=== PATIENT | male | born 1970 | race Caucasian/White ===

== ENCOUNTER 2022-06-17 13:01 | Emergency (ER) | payer SELFPAY ==
--- NOTE | ~2022-06-17 | US_ITS ---
EXAMINATION: US scrotum doppler DATE: 06/17/2022 14:32 INDICATION: Right scrotal abscess with drainage. TECHNIQUE: Grayscale and Doppler ultrasound images of the testes were obtained. COMPARISON: None. FINDINGS: The right testis measures 5.5 x 4.1 x 2.4 cm. The left testis measures 5.8 x 3.1 x 2.9 cm. There is a scrotal left on the left. There is normal vascular flow to both testes. The right epididym is is normal with normal vascular flow. The left epididymis is normal with normal vascular flow. Ther e is a small left hydrocele. In the scrotum on the right, there is a 2.8 x 1.3 x 2.0 cm hypoechoic ma ss with peripheral vascularity. The center of the mass is the most hypoechoic without vascularity and measures 2.3 x 1.0 x 0.6 cm. IMPRESSION: 1. Mass in right scrotum, consistent with phlegmon versus abscess. It is not clear if the material in the center of the mass is drainable. Reviewed, dictated and finalized at location A. IMPRESSION: 1. Mass in right scrotum, consistent with phlegmon versus abscess. It is not cl ear if the material in the center of the mass is drainable.
[2022-06-17 13:16] VITALS: BP 152/88; PULSE 99; RESP 20; TEMP 36.8; O2SAT 97
[2022-06-17 13:52] LABS: Basophils Absolute Auto 0.03 K/mm3 (0.00-0.10); Basophils Percent Auto 0.3 % (0.0-1.0); Eosinophils Absolute Auto 0.13 K/mm3 (0.02-0.50); Eosinophils Percent Auto 1.5 % (1.0-6.0); Hematocrit 48.3 % (40.0-54.0); Hemoglobin 16.8 g/dL (14.0-18.0); Immature Granulocyte Absolute 0.03 K/mm3 (0.00-0.00); Immature Granulocyte Percent A 0.3 % (0.0-0.0); Lymphocytes Absolute Auto 2.06 K/mm3 (1.10-4.50); Lymphocytes Percent Auto 23.3 % (18.0-42.0); Mean Corpuscular HGB Conc 34.8 g/dL (32.0-36.0); Mean Corpuscular Hemoglobin 32.5 pg (27.0-31.0); Mean Corpuscular Volume 93.4 fL (78.0-102.0); Mean Platelet Volume 8.7 fl (8.7-11.0); Monocytes Absolute Auto 0.88 K/mm3 (0.10-0.90); Neutrophils Absolute Auto 5.7 K/mm3 (1.7-7.2); Neutrophils Percent Auto 64.6 % (50.0-70.0); Platelet Count Result 333 K/mm3 (150-420); Red Blood Count 5.17 M/mm3 (4.70-6.10); Red Cell Distribution Width 13.1 % (11.6-14.4); White Blood Count 8.8 K/mm3 (4.8-10.8)
--- NOTE | 2022-06-17 13:59 | ED.GENADULT ---
HPI - General Adult General Chief complaint: Urogenital-Male Stated complaint: TESTICLE ISSUE Time Seen by Provider: 06/17/22 13:25 History of Present Illness HPI narrative: Toby is a 51M with a PMH of tobacco abuse that presented to the ED with a rash on his right inner thigh and scrotum. About a month ago he started to have chills and later an erythematous rash developed and turned to a boil several days ago. The boil popped and had lots of purulent drainage yesterday. Related Data Home Medications Medication Instructions Recorded Confirmed No Home Medications 06/17/22 06/17/22 Allergies Allergy/AdvReac Type Severity Reaction Status Date / Time No Known Allergies Allergy Verified 06/17/22 19:39 [facility] Past Medical History Medical History (Updated 06/18/22 @ 08:12 by Barry Eng DO) Tobacco dependence Surgical History Surgical History (Updated 06/17/22 @ 23:17 by Taylor Maddox PA-C) No history of previous surgery Family History Family History (Updated 06/17/22 @ 23:18 by Taylor Maddox PA-C) Other Family history non-contributory Social History Social History (Updated 06/17/22 @ 23:19 by Taylor Maddox PA-C) Social History: Surrogate medical decision maker: Courtney Hughes, sister. Code status: Full code. Smoking packs per day: 1.5 Smoking cigarettes per day: 30.0 Years smoked: 34 Smoking pack-years: 51.00 Smoking status: Current every day smoker Tobacco type: cigarettes Second hand tobacco smoke exposure: No Alcohol intake: current Drinks per week: 12 Alcohol use details: Twelve pack of beer a week. Substance use: never Substance use type: does not use Additional living arrangements comments: The patient lives in his own home in [place]. Additional occupation/education comments: [employer]. Spiritual care concerns: No Course Course Emergency Course: Declined pain meds EXAMINATION: US scrotum doppler DATE: 06/17/2022 14:32 INDICATION: Right scrotal abscess with drainage. TECHNIQUE: Grayscale and Doppler ultrasound images of the testes were obtained. COMPARISON: None. FINDINGS: The right testis measures 5.5 x 4.1 x 2.4 cm. The left testis measures 5.8 x 3.1 x 2.9 cm. There is a scrotal left on the left. There is normal vascular flow to both testes. The right epididymis is normal with normal vascular flow. The left epididymis is normal with normal vascular flow. There is a small left hydrocele. In the scrotum on the right, there is a 2.8 x 1.3 x 2.0 cm hypoechoic mass with peripheral vascularity. The center of the mass is the most hypoechoic without vascularity and measures 2.3 x 1.0 x 0.6 cm. IMPRESSION: 1. Mass in right scrotum, consistent with phlegmon versus abscess. It is not clear if the material in the center of the mass is drainable. I called [facility] for a consult and Yarely, the [employer] called back at [phone] and recommended transfer. I spoke with Taylor that accepted the transfer for Dr. Swan. He was transferred to [facility] for a Urology consult. Vital Signs Vital signs: Vital Signs Temperature 98.2 F 06/17/22 13:16 Pulse Rate 99 06/17/22 13:16 Respiratory Rate 20 06/17/22 13:16 Blood Pressure 152/88 H 06/17/22 13:16 Pulse Oximetry 97 06/17/22 13:16 Oxygen Delivery Room Air 06/17/22 13:16 Temperature 98.2 F 06/17/22 13:16 Pulse Rate 86 06/17/22 17:15 Respiratory Rate 20 06/17/22 17:15 Blood Pressure 141/91 H 06/17/22 17:15 Pulse Oximetry 96 06/17/22 17:15 Oxygen Delivery Room Air 06/17/22 17:15 Medical Decision Making Vital Signs Vital Signs: Vital Signs Temperature 98.2 F 06/17/22 13:16 Pulse Rate 99 06/17/22 13:16 Respiratory Rate 20 06/17/22 13:16 Blood Pressure 152/88 H 06/17/22 13:16 Pulse Oximetry 97 06/17/22 13:16 Oxygen Delivery Room Air 06/17/22 13:16 Temperature 98.2 F 06/17/22 13:16 Pulse Rate 86 06/17/22 17:15 Respira
[2022-06-17 14:08] LABS: Alanine Aminotransferase 24 U/L (16-63); Albumin Level 3.6 g/dL (3.4-5.0); Alkaline Phosphatase 101 U/L (46-116); Anion Gap 9 mmol/L (8-16); Aspartate Amino Transferase 20 U/L (15-37); Bilirubin,Total 0.6 mg/dL (0.00-1.00); Blood Urea Nitrogen 6 mg/dL (7-18); Calcium 9.1 mg/dL (8.5-10.1); Carbon Dioxide 28 mmol/L (21-32); Chloride 100 mmol/L (98-108); Estimated CRCL calculation 78 ml/min; Estimated Glomerular Filt Rate > 60; Glucose 102 mg/dL (70-99); Osmolality Calculated 281 mOsm/kg (285-295); Potassium 3.8 mmol/L (3.5-5.1); Sodium 137 mmol/L (136-145); Total Protein 7.3 g/dL (6.4-8.2)
[2022-06-17 14:15] VITALS: BP 145/99; PULSE 89; RESP 20; O2SAT 96
[2022-06-17 15:15] VITALS: BP 149/96; PULSE 97; RESP 20; O2SAT 96
[2022-06-17] MEDS: CLINDAMYCIN 600 MG/D5W 50 ML 600 MG/50 ML PIGGYBACK 100 MG IVPB (16:13)
[2022-06-17 16:15] VITALS: BP 140/88; PULSE 90; RESP 20; O2SAT 95
[2022-06-17 17:15] VITALS: BP 141/91; PULSE 86; RESP 20; O2SAT 96
--- NOTE | 2022-06-17 17:28 | PC.NURSE ---
1715 ATTEMPTED TO CALL REPORT NURSE WAS BUSY AND COULD NOT TAKE REPORT
== END 2022-06-17 18:30 | disposition short-term general hospital (02) ==
PROVIDERS: Emergency Provider Family Medicine
DX: N49.2 Inflammatory disorders of scrotum (principal)
CPT/HCPCS: 36415; 76870; 80053; 85025; 93976; 96365; 99285

== ENCOUNTER 2022-06-17 19:00 | Inpatient (IN) | payer BC, SELFPAY ==
[2022-06-17 19:05] VITALS: BP 144/79; PULSE 70; RESP 14; TEMP 36.6; O2SAT 98; BMI 26.6
--- NOTE | 2022-06-17 19:35 | PC.NURSE ---
This patient, Toby Chou, was admitted to [facility] Room 326-01 on 06/17/22 @ 1900. Patient/family oriented to hospital policies and general routines including ID bracelet, bed and alarms, visiting hours, pain management, procedures, bathroom and other care routines, personal items, smoking policy, room service/diet, and visiting hours. Information on how to activate the Rapid Response Team has been discussed. Patient/Family are encouraged to report perceived risks to care and to ask questions if they do not understand what they are told or what they should do.
[2022-06-17 19:42] VITALS: BMI 26.4
--- NOTE | 2022-06-17 22:00 | PM.IMHP ---
H&P: HPI History of Present Illness Date/Time: 06/17/22 22:00 Chief Complaint: Scrotal abscess. Narrative: This is a very pleasant 51-year-old male smoker without significant medical history who is being directly admitted to the medical floor from the [facility] emergency department for further treatment and evaluation after he was found to have evidence of a scrotal abscess. About a month ago he noticed a small bump at the base of the right scrotum near the inguinal crease followed by the development of a boil a couple of weeks are after. Over the last week or so the area has become progressively more tender, swollen, and he has noticed redness around the scrotum and on to his upper thigh. He has been taking Tylenol for almost constant throbbing and aching pain as well as subjective fever and chills which started over the past week. 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 Yesterday the boil popped on its own and drained a fairly large amount of purulence admixed with what he believes to be old blood. Due to continued pain and fevers he went to the ER today where a scrotal ultrasound showed a mass in the right scrotum consistent with leg min verses abscess. He was given a dose of IV clindamycin and transfer was initiated to [place] for consultation with Urology. At the time my evaluation he is resting comfortably and he has no specific complaints. He had a similar boil many years ago in the same area. He has no history of MRSA to his knowledge. Review of Systems Review of Systems: Twelve systems were reviewed. He has had subjective fever, chills, and sweats. No cold or flu symptoms. No chest pain or shortness of breath. No nausea or vomiting. Except as documented, all other systems were reviewed and are negative. [facility] Past Medical History Medical History (Updated 06/17/22 @ 23:23 by Taylor Maddox PA-C) Tobacco dependence Surgical History Surgical History (Updated 06/17/22 @ 23:17 by Taylor Maddox PA-C) No history of previous surgery Family History Family History (Updated 06/17/22 @ 23:18 by Taylor Maddox PA-C) Other Family history non-contributory Social History Social History (Updated 06/17/22 @ 23:19 by HAYDEE Hughes Social History: Surrogate medical decision maker: Courtney Hughes, sister. Code status: Full code. Smoking packs per day: 1.5 Smoking cigarettes per day: 30.0 Years smoked: 34 Smoking pack-years: 51.00 Smoking status: Current every day smoker Tobacco type: cigarettes Second hand tobacco smoke exposure: No Alcohol intake: current Drinks per week: 12 Alcohol use details: Twelve pack of beer a week. Substance use: never Substance use type: does not use Additional living arrangements comments: The patient lives in his own home in [place]. Additional occupation/education comments: [employer]. Spiritual care concerns: No Meds Home Medications and Allergies Home Medications Medication Instructions Recorded Confirmed Type No Home Medications 06/17/22 06/17/22 History Allergies Allergy/AdvReac Type Severity Reaction Status Date / Time No Known Allergies Allergy Verified 06/17/22 19:39 Vital Signs Vital Signs - 24 hr 06/17/22 20:00 06/17/22 19:05 Temperature 97.8 F Pulse Rate 70 Respiratory Rate 14 Blood Pressure 144/79 H Pulse Oximetry 98 Oxygen Delivery Room Air Exam Narrative: General: Well-developed, nontoxic-appearing male in the semi-Melendez position in bed. Weight: 70 kilograms. BMI: 26.5. HEENT: PERRL, EOMI. Sclera anicteric. Conjunctiva mildly injected. Moist mucous membranes. Neck: Supple. Respiratory: Lungs are clear to auscultation bilaterally. Cardiovascular: Regular rate and rhythm with S1-S2. Gastrointestinal: Abdomen is soft, nontender, and nondistended with positive bowel sounds. No organomegaly. Genitourinary:
[2022-06-18] VITALS (14 sets, daily range): BP systolic 109–144; BP diastolic 71–95; PULSE 62–88; RESP 12–18; TEMP 36.2–37.8; O2SAT 97–100
[2022-06-18] MEDS: NICOTINE (*PBKC) 4 MG GUM PO ×3 (00:45→20:58)
[2022-06-18] MEDS: CLINDAMYCIN 600 MG/D5W 50 ML 600 MG/50 ML PIGGYBACK 100 MG IVPB ×4 (00:45→21:09)
[2022-06-18 06:00] LABS: Hematocrit 47.9 % (42.0-52.0); Mean Corpuscular HGB Conc 33.4 g/dl (32-36); Mean Corpuscular Hemoglobin 32.1 pg (26-34); Mean Platelet Volume 8.8 fl (7.4-10.4); Platelet Count Result 325 k/mm3 (150-375); Red Blood Count 4.99 M/mm3 (4.6-6.20); Red Cell Distribution Width 13.2 % (11.5-14.5)
[2022-06-18 06:27] LABS: Anion Gap 8 mmol/L (8-16); Blood Urea Nitrogen 11 mg/dL (9-20); CRP 2.5 mg/dL (<1.0); Calcium 8.9 mg/dL (8.4-10.2); Carbon Dioxide 29 mmol/L (22-30); Chloride 100 mmol/L (98-107); Estimated CRCL calculation 80 ml/min; Estimated Glomerular Filt Rate > 60; Glucose 117 mg/dL (65-110); Magnesium 2.3 mg/dL (1.6-2.3); Potassium 4.1 mmol/L (3.4-5.0); Sodium 137 mmol/L (137-145)
--- NOTE | 2022-06-18 09:08 | WPDURCON ---
Assessment and Plan Assessment and plan (1) Abscess of scrotum: Code(s): N49.2 - Inflammatory disorders of scrotum Status: Acute Plan Proceed with I and D of scrotal abscess in the operating this afternoon Urology Consult Note HPI Date Seen: 06/18/22 Requesting Physician: Brent Swan MD Primary Care Provider: UNKNOWN,DOCTOR Consult Narrative Reason for consult: Scrotal abscess Narrative: Toby Chou is a 51 year old male who developed some right scrotal swelling for the last past month. Patient was having a lot of discomfort in then noticed significant amount of drainage from his right hemiscrotum. [facility] here to [place]. He feels better today. Scrotal ultrasound revealed a 2 cm possible scrotal abscess. Patient has no fever or white count at this time. Review of Systems Review of Systems: All systems reviewed & are unremarkable except as noted in HPI and below PMFSH Past Medical History Medical History Tobacco dependence Surgical History Surgical History No history of previous surgery Family History Family History Other Family history non-contributory Social History Social History Social History: Surrogate medical decision maker: Courtney Hughes, sister. Code status: Full code. Smoking packs per day: 1.5 Smoking cigarettes per day: 30.0 Years smoked: 34 Smoking pack-years: 51.00 Smoking status: Current every day smoker Tobacco type: cigarettes Second hand tobacco smoke exposure: No Alcohol intake: current Drinks per week: 12 Alcohol use details: Twelve pack of beer a week. Substance use: never Substance use type: does not use Additional living arrangements comments: The patient lives in his own home in [place]. Additional occupation/education comments: [employer]. Spiritual care concerns: No Meds Home Medications and Allergies Home Medications Medication Instructions Recorded Confirmed Type No Home Medications 06/17/22 06/17/22 History Allergies Allergy/AdvReac Type Severity Reaction Status Date / Time No Known Allergies Allergy Verified 06/17/22 19:39 Vital Signs Vital Signs - 24 hr 06/17/22 20:00 06/17/22 19:05 06/18/22 04:44 Temperature 36.6 C 36.6 C Pulse Rate 70 88 Respiratory Rate 14 16 Blood Pressure 144/79 H 133/76 Pulse Oximetry 98 98 Oxygen Delivery Room Air Exam Const: General: cooperative and comfortable HENMT: Head: normal to inspection Resp: Effort & Inspection: normal respiratory effort Cardio: Rate: regular rate Rhythm: regular rhythm : Penis: Yes normal penis Scrotum: other (Area of fluctuance right hemiscrotum) Results Labs CBC & Chem 7: 06/18/22 05:39 06/18/22 05:39 Labs: Short CBC 06/18/22 Range/Units 05:39 WBC 7.0 (4.5-10.0) K/mm3 Hgb 16.0 (14.0-18.0) g/dL Hct 47.9 (42.0-52.0) % Plt Count 325 (150-375) k/mm3 [facility] 06/18/22 05:39 Sodium 137 Potassium 4.1 Chloride 100 Carbon Dioxide 29 BUN 11 Creatinine 0.80 Glucose 117 H Calcium 8.9
--- NOTE | 2022-06-18 09:11 | WPDHPUPDATE1 ---
History and Physical Update Update Date/Time: 06/18/22 09:11 History and Physical has been reviewed, including an updated exam of the patient. There are NO changes in the patient's condition. Risks, benefits, and alternatives have been discussed and questions answered. Patient agrees to proceed with procedure. Proceed with I and D of scrotal abscess
[2022-06-18] MEDS: NICOTINE (*PBKC) 21 MG PATCH 1 PATCH TRANSDERM (09:31)
--- NOTE | 2022-06-18 10:55 | WPDANESEPPF ---
Anes - Initial Pre Proc Eval Procedure: Operation Date: 06/18/22 14:45 Proposed Procedures p Incision and Drainage Scrotal Abscess - Amrit Covington MD Date/Time: 06/18/22 10:55 Surgeon: Brent Swan MD Pre Op Diagnosis: Right scrotal Abscess Patient Data Age: 51 Gender: M Height: 1.63 m Weight: 70 kg Last Vital Signs Temp 36.6 C 06/18/22 04:44 Pulse 88 06/18/22 04:44 Resp 16 06/18/22 04:44 BP 133/76 06/18/22 04:44 Pulse Ox 98 06/18/22 04:44 O2 Del Method Room Air 06/17/22 20:00 Allergies Allergy/AdvReac Type Severity Reaction Status Date / Time No Known Allergies Allergy Verified 06/17/22 19:39 Home Medications Medication Instructions Recorded Confirmed Type No Home Medications 06/17/22 06/17/22 History Laboratory Tests 06/18/22 06/18/22 05:39 05:39 WBC 7.0 K/mm3 K/mm3 (4.5-10.0) RBC 4.99 M/mm3 M/mm3 (4.6-6.20) Hgb 16.0 g/dL g/dL (14.0-18.0) Hct 47.9 % % (42.0-52.0) MCV 96.0 fl fl (80-100) MCH 32.1 pg pg (26-34) MCHC 33.4 g/dl g/dl (32-36) RDW 13.2 % % (11.5-14.5) Plt Count 325 k/mm3 k/mm3 (150-375) MPV 8.8 fl fl (7.4-10.4) Sodium 137 mmol/L mmol/L (137-145) Potassium 4.1 mmol/L mmol/L (3.4-5.0) Chloride 100 mmol/L mmol/L (98-107) Carbon Dioxide 29 mmol/L mmol/L (22-30) Anion Gap 8 mmol/L mmol/L (8-16) BUN 11 mg/dL mg/dL (9-20) Creatinine 0.80 mg/dL mg/dL (0.7-1.3) Estim Creat Clear Calc 80 ml/min ml/min Estimated GFR > 60 (59 - ) Glucose 117 mg/dL H mg/dL (65-110) Calcium 8.9 mg/dL mg/dL (8.4-10.2) Magnesium 2.3 mg/dL mg/dL (1.6-2.3) C-Reactive Protein 2.5 mg/dL H mg/dL (<1.0) Patient hx anesthesia problems: none Family hx anesthesia problems: none Results Review: All pre-operative results and documents have been reviewed as part of the pre-operative evaluation. [facility] Past Medical History Medical History (Updated 06/18/22 @ 10:56 by Lorenzo Garcia MD) Abscess of scrotum Boil of scrotum Cellulitis of scrotum ETOH abuse Overweight (BMI 25.0-29.9) Tobacco dependence Surgical History Surgical History No history of previous surgery Family History Family History Other Family history non-contributory Social History Social History Social History: Surrogate medical decision maker: Courtney Hughes, sister. Code status: Full code. Smoking packs per day: 1.5 Smoking cigarettes per day: 30.0 Years smoked: 34 Smoking pack-years: 51.00 Smoking status: Current every day smoker Tobacco type: cigarettes Second hand tobacco smoke exposure: No Alcohol intake: current Drinks per week: 12 Alcohol use details: Twelve pack of beer a week. Substance use: never Substance use type: does not use Additional living arrangements comments: The patient lives in his own home in [place]. Additional occupation/education comments: [employer]. Spiritual care concerns: No Anes - Eval Final PreProcedure Day of Procedure 06/18/22 10:55 Patient weight: overweight Heart: regular rate and rhythm Lungs: clear to auscultation and normal air movement Airway: Mallampati scale class II Neurological: alert and oriented Last oral intake: >/= 8 hours ASA classification: III Emergent: no Anesthetic plan: proceed Anesthesia type and monitoring: general LMA Results Review: All pre-operative results and documents have been reviewed as part of the pre-operative evaluation. Informed Consent: The patient's anesthetic plan and its attendant risks and benefits were discussed with the patient/family/POA. Questions were solicited and answers provided to
[2022-06-18] MEDS: LACTATED RINGERS 1,000 ML 30 ML IV CONT (13:05)
--- NOTE | 2022-06-18 14:34 | W.PM.PROC2 ---
Procedure Note - Detailed Date of Procedure 06/18/22 Pre-op Diagnosis Right scrotal Abscess Post-op Diagnosis Same Procedure Performed Incision and drainage of scrotal abscess Surgeon Amrit Covington MD Anesthesia General Description of Procedure Patient was taken to the operative suite correctly identified. Once anesthesia was obtained was prepped draped usual sterile fashion. He has a fluctuant area in the right hemiscrotal area laterally. We went ahead and sized this to about 1.5 cm. There was about 10 cc to 15 cc of purulence that was removed. We cultured this area. The wound was copiously irrigated with saline. To fulgurated the edges. It was packed with slightly wet 4 x 4. He is taken recovery stable condition. Estimated Blood Loss 0 Drains No Packing Yes Pathology Yes Complications No immediate complications Condition Stable Disposition PACU
[2022-06-18] MEDS: ACETAMINOPHEN 325 MG TABLET 650 MG PO (21:07)
[2022-06-19 02:04] VITALS: BP 129/78; PULSE 72; RESP 18; TEMP 36.4; O2SAT 99
[2022-06-19] MEDS: CLINDAMYCIN 600 MG/D5W 50 ML 600 MG/50 ML PIGGYBACK 100 MG IVPB ×3 (05:50→21:10)
[2022-06-19 06:00] VITALS: BP 128/82; PULSE 70; RESP 18; TEMP 36.7; O2SAT 98
[2022-06-19] MEDS: NICOTINE (*PBKC) 21 MG PATCH 1 PATCH TRANSDERM (08:33)
--- NOTE | 2022-06-19 09:07 | WPDANESPN ---
Anes - Prog Note Post-Op Date/Time: 06/19/22 09:07 Cardiovascular status: normal Respiratory status: normal Airway patency: baseline Mental status: baseline Post-Op hydration status: normal Vital Signs: Last Vital Signs Temp 98.0 F 06/19/22 06:00 Pulse 70 06/19/22 06:00 Resp 18 06/19/22 06:00 BP 128/82 06/19/22 06:00 Pulse Ox 98 06/19/22 06:00 O2 Del Method Room Air 06/18/22 20:00 O2 Flow Rate 10 06/18/22 15:10 Pain Score (VAS): 0/10 I/O: Intake & Output 06/18/22 06/19/22 06/19/22 23:59 07:59 15:59 Intake Total 510 640 Balance 510 640 Laboratory Tests 06/18/22 05:39 06/18/22 05:39 Microbiology 06/18/22 14:29 Abscess Anaerobic Culture - Preliminary Patient Feedback: Patient satisfied with anesthetic care.
[2022-06-19 10:04] VITALS: BP 133/86; PULSE 76; RESP 18; TEMP 36.3; O2SAT 98
--- NOTE | 2022-06-19 12:17 | WPDUROPN2 ---
Progress Note: A&P Assessment and Plan (1) Boil of scrotum: Code(s): N49.2 - Inflammatory disorders of scrotum Status: Acute Assessment and Plan: Ok to discharge home at anytime. Apply scrotal support. Change packing with a dry 4x4 and then apply 4x4's over the packing for optimal drainage. ok to apply Ice for pain PRN. (2) Cellulitis of scrotum: Code(s): N49.2 - Inflammatory disorders of scrotum Status: Acute Subjective Subjective Date/Time Seen: 06/19/22 12:17 POD #1 Scrotal abscess I&D Patient doing well, pain is controlled, packing is saturated with bloody drainage. Patient is tolerating diet and is walking the halls of the floor. Post Op day: 1 Review of Systems Cardiovascular: Cardiovascular: Denies chest pain Respiratory: Respiratory: Reports no additional respiratory complaints Gastrointestinal: Gastrointestinal: Denies abdominal pain, Denies nausea and Denies vomiting Genitourinary: Genitourinary: Denies hematuria, Reports genital pain, Denies dysuria, Denies flank pain and Reports scrotal swelling (pain) Exam Const: General: cooperative and comfortable Cardio: Rate: regular rate GI: GI Palp: Yes Soft to palpation and No Tenderness to palpation present (GI) : General: Yes no CVA tenderness Scrotum: edematous, erythematous (induration noted around incision, dressing/packing intact and draining) and scrotal swelling on the right Extrem: Right lower extremity: no edema Left lower extremity: no edema Objective Data Vital Signs Vital Signs: Vital Signs - 24 hr 06/18/22 13:05 06/18/22 14:40 06/18/22 14:55 Temperature 100.1 F H 98.2 F Pulse Rate 84 77 62 Respiratory Rate 18 14 12 Blood Pressure 140/86 120/72 109/75 Pulse Oximetry 99 98 99 Oxygen Delivery Room Air Simple Face Mask Simple Face Mask Oxygen Flow Rate 10 10 06/18/22 15:10 06/18/22 15:12 06/18/22 15:25 Temperature Pulse Rate 79 77 Respiratory Rate 18 18 Blood Pressure 131/95 H 144/89 H Pulse Oximetry 100 98 Oxygen Delivery Simple Face Mask Room Air Room Air Oxygen Flow Rate 10 06/18/22 15:33 06/18/22 15:57 06/18/22 16:45 Temperature 98.2 F 98.0 F Pulse Rate 69 78 73 Respiratory Rate 16 14 16 Blood Pressure 131/84 143/78 H 138/82 Pulse Oximetry 99 98 97 Oxygen Delivery Room Air Oxygen Flow Rate 06/18/22 17:31 06/18/22 18:04 06/18/22 21:53 Temperature 98.1 F 98.2 F 97.2 F L Pulse Rate 87 78 79 Respiratory Rate 16 14 18 Blood Pressure 143/86 H 132/79 141/71 H Pulse Oximetry 99 100 97 Oxygen Delivery Oxygen Flow Rate 06/18/22 20:00 06/19/22 02:04 06/19/22 06:00 Temperature 97.5 F L 98.0 F Pulse Rate 79 72 70 Respiratory Rate 18 18 18 Blood Pressure 129/78 128/82 Pulse Oximetry 97 99 98 Oxygen Delivery Room Air Oxygen Flow Rate 06/19/22 10:04 Temperature 97.3 F L Pulse Rate 76 Respiratory Rate 18 Blood Pressure 133/86 Pulse Oximetry 98 Oxygen Delivery Oxygen Flow Rate Intake/Output Intake/Output: Intake & Output 06/16/22 06/17/22 06/18/22 06/19/22 23:59 23:59 23:59 23:59 Intake Total 1100 880 Balance 1100 880 Meds/Results Medications: Active Medications Generic Name Dose Route Start Last Admin Trade Name Allyssa PRN Reason Stop Dose Admin Acetaminophen 650 mg 06/17/22 21:10 06/18/22 21:07 Acetaminophen 325 Mg Tablet PO 650 mg Q4H PRN Administration Mild Pain (1-3) or Fever Hydrocodone Bitart/Acetaminophen 1 tab 06/17/22 21:10 Hydrocodone/Acetaminophen (*Crx) 5-325 Mg Tablet PO Q4H PRN Moderate Pain (4-6) Fentanyl Citrate 25 mcg 06/18/22 10:18 Fentanyl Citrate Inj (*Crx) 100 Mcg/2 Ml Vial IV PUSH Q2M PRN Pain Clindamycin Phosphate 600 mg in 50 mls @ 100 mls/hr 06/17/22 23:40 06/19/22 05:50 Clindamycin 600 Mg/D5w 50 Ml IVPB 100 mls/hr Q8HR MIRE[place]LE Administration Lactated Ringer's 1,000 mls @ 30 mls/hr 06/18/22 10:20 06/19/22 12:00 Lr - Lacta
--- NOTE | 2022-06-19 17:05 | PM.IMPN ---
Progress Note: A&P Assessment and Plan (1) Boil of scrotum: Code(s): N49.2 - Inflammatory disorders of scrotum Status: Acute (2) Cellulitis of scrotum: Code(s): N49.2 - Inflammatory disorders of scrotum Status: Acute (3) Tobacco dependence: Code(s): F17.200 - Nicotine dependence, unspecified, uncomplicated Status: Acute Plan The patient presented to the emergency department today for evaluation after a boil on his scrotum ruptured yesterday which drained malodorous, purulent fluid. He is concerned that he is still having fevers, chills, and sweats and he came in for evaluation. Scrotal ultrasound showed a mass in the right scrotum which may be an abscess or phlegmon. He has been transferred to [place] for consultation with Urology. He was started on clindamycin at the outside facility and we will continue with that for now as this appears superficial. I have no concerns for necrotizing fasciitis. Smoking cessation is encouraged and at patient request I will order some nicotine gum for him. 06/19/2022 interval history: patient with scrotal abscess was seen by Urology and had I and D, POD#1, purulent drainage was was collected for culture patient is being treated with clindamycin, patient states the pain is better compared to when he arrived, denies any fever, or chills, will follow-up on wound culture and further recommendation to follow. Subjective Date/time seen: 06/19/22 17:05 HPI-This is a very pleasant 51-year-old male smoker without significant medical history who is being directly admitted to the medical floor from the [facility] emergency department for further treatment and evaluation after he was found to have evidence of a scrotal abscess. About a month ago he noticed a small bump at the base of the right scrotum near the inguinal crease followed by the development of a boil a couple of weeks are after. Over the last week or so the area has become progressively more tender, swollen, and he has noticed redness around the scrotum and on to his upper thigh. He has been taking Tylenol for almost constant throbbing and aching pain as well as subjective fever and chills which started over the past week. 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 Yesterday the boil popped on its own and drained a fairly large amount of purulence admixed with what he believes to be old blood. Due to continued pain and fevers he went to the ER today where a scrotal ultrasound showed a mass in the right scrotum consistent with leg min verses abscess. He was given a dose of IV clindamycin and transfer was initiated to [place] for consultation with Urology. At the time my evaluation he is resting comfortably and he has no specific complaints. He had a similar boil many years ago in the same area. He has no history of MRSA to his knowledge. 06/19/2022 interval history: patient with scrotal abscess was seen by Urology and had I and D, POD#1, purulent drainage was was collected for culture patient is being treated with clindamycin, patient states the pain is better compared to when he arrived, denies any fever, or chills, will follow-up on wound culture and further recommendation to follow. Review of Systems Cardiovascular: Cardiovascular: Denies chest pain Respiratory: Respiratory: Reports no additional respiratory complaints Gastrointestinal: Gastrointestinal: Denies abdominal pain, Denies nausea and Denies vomiting Genitourinary: Genitourinary: Denies hematuria, Reports genital pain, Denies dysuria, Denies flank pain and Reports scrotal swelling (pain) Exam Narrative: Patient is comfortable, NAD HEENT: eyes are clear and none icteric LUNGS: normal respiratory effort ABD: not distended Lower extremities: no edema SKIN: nonjaundiced Neuro: grossly intact. Objective Data Vital Signs Vital Signs: Vital Signs - 24 hr 06/18/22 17:31 06/18/22 18:04 05/24
[2022-06-19 18:04] VITALS: BP 134/94; PULSE 82; RESP 18; TEMP 36.4; O2SAT 99
[2022-06-20 02:28] VITALS: BP 130/80; PULSE 70; RESP 16; TEMP 36.9; O2SAT 99
[2022-06-20 05:56] LABS: Hematocrit 48.6 % (42.0-52.0); Mean Corpuscular HGB Conc 32.9 g/dl (32-36); Mean Corpuscular Hemoglobin 31.4 pg (26-34); Mean Corpuscular Volume 95.5 fl (80-100); Mean Platelet Volume 8.7 fl (7.4-10.4); Platelet Count Result 308 k/mm3 (150-375); Red Blood Count 5.09 M/mm3 (4.6-6.20); Red Cell Distribution Width 13.1 % (11.5-14.5); White Blood Count 6.6 K/mm3 (4.5-10.0)
[2022-06-20] MEDS: CLINDAMYCIN 600 MG/D5W 50 ML 600 MG/50 ML PIGGYBACK 100 MG IVPB (06:01)
[2022-06-20 07:27] LABS: Anion Gap 7 mmol/L (8-16); Blood Urea Nitrogen 10 mg/dL (9-20); Calcium 8.8 mg/dL (8.4-10.2); Carbon Dioxide 26 mmol/L (22-30); Chloride 103 mmol/L (98-107); Estimated CRCL calculation 80 ml/min; Estimated Glomerular Filt Rate > 60; Glucose 96 mg/dL (65-110); Potassium 4.6 mmol/L (3.4-5.0); Sodium 136 mmol/L (137-145)
[2022-06-20 08:00] VITALS: O2SAT 100
[2022-06-20] MEDS: NICOTINE (*PBKC) 21 MG PATCH 1 PATCH TRANSDERM (08:41)
--- NOTE | 2022-06-20 11:36 | PM.DS ---
DS: Admitting Diagnosis Discharge Date 06/20/2022 Admitting Diagnosis Scrotal abscess. DS: Discharge Diagnosis Discharge Diagnosis (1) Boil of scrotum: Code(s): N49.2 - Inflammatory disorders of scrotum Status: Acute (2) Cellulitis of scrotum: Code(s): N49.2 - Inflammatory disorders of scrotum Status: Acute (3) Tobacco dependence: Code(s): F17.200 - Nicotine dependence, unspecified, uncomplicated Status: Acute Plan The patient presented to the emergency department today for evaluation after a boil on his scrotum ruptured yesterday which drained malodorous, purulent fluid. He is concerned that he is still having fevers, chills, and sweats and he came in for evaluation. Scrotal ultrasound showed a mass in the right scrotum which may be an abscess or phlegmon. He has been transferred to [place] for consultation with Urology. He was started on clindamycin at the outside facility and we will continue with that for now as this appears superficial. I have no concerns for necrotizing fasciitis. Smoking cessation is encouraged and at patient request I will order some nicotine gum for him. 06/19/2022 interval history: patient with scrotal abscess was seen by Urology and had I and D, POD#1, purulent drainage was was collected for culture patient is being treated with clindamycin, patient states the pain is better compared to when he arrived, denies any fever, or chills, will follow-up on wound culture and further recommendation to follow. DS: Summary Hospital Course Reason for hospitalization: Chief Complaint: Scrotal abscess. Narrative: This is a very pleasant 51-year-old male smoker without significant medical history who is being directly admitted to the medical floor from the [facility] emergency department for further treatment and evaluation after he was found to have evidence of a scrotal abscess. About a month ago he noticed a small bump at the base of the right scrotum near the inguinal crease followed by the development of a boil a couple of weeks are after. Over the last week or so the area has become progressively more tender, swollen, and he has noticed redness around the scrotum and on to his upper thigh. He has been taking Tylenol for almost constant throbbing and aching pain as well as subjective fever and chills which started over the past week. 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 Yesterday the boil popped on its own and drained a fairly large amount of purulence admixed with what he believes to be old blood. Due to continued pain and fevers he went to the ER today where a scrotal ultrasound showed a mass in the right scrotum consistent with leg min verses abscess. He was given a dose of IV clindamycin and transfer was initiated to [place] for consultation with Urology. At the time my evaluation he is resting comfortably and he has no specific complaints. He had a similar boil many years ago in the same area. He has no history of MRSA to his knowledge. Hospital Course: patient with scrotal abscess was seen by Urology and had I and D, POD#2, purulent drainage was was collected for culture patient is being treated with clindamycin, patient states the pain is better compared to when he arrived, denies any fever, or chills, wound culture did not show new organism, did show some WBC, patient is clinically stable pain is better will discharge the patient with clindamycin patient will follow-up with urologist as scheduled. Time Spent with Patient Time attestation: Total time spent providing and/or coordinating discharge services: Exam Narrative: Patient is comfortable, NAD HEENT: eyes are clear and none icteric LUNGS: normal respiratory effort ABD: not distended Lower extremities: no edema SKIN: nonjaundiced Neuro: grossly intact. DS: Data Data Completed and Pending Labs on day of discharge: Labs from last 24 hours 06/20
== END 2022-06-20 13:30 | disposition home or self-care (01) | DRG 718 ==
PROVIDERS: Physician Assistant; Urology; Admitting Provider Chiropractor; Visit Provider Family Medicine
PROC: 0V950ZZ Drainage of Scrotum, Open Approach (ICD-10-PCS; CPT 54700; principal; 2022-06-18 14:45)
DX: N49.2 Inflammatory disorders of scrotum (principal); F17.210 Nicotine dependence, cigarettes, uncomplicated
CPT/HCPCS: 36415; 80048; 83735; 85027; 86140; 87070; 87075; 87205; 96365; A9270; G0378; G0379; J1885; J2250; J2405; J2704; J3010; J7120

== ENCOUNTER 2022-08-21 16:47 | Outpatient (CLI) | payer BC, SELFPAY ==
[2022-08-21 17:02] LABS: Basophils Absolute Auto 0.03 K/mm3 (0.00-0.10); Basophils Percent Auto 0.3 % (0.0-1.0); Eosinophils Absolute Auto 0.25 K/mm3 (0.02-0.50); Eosinophils Percent Auto 2.5 % (1.0-6.0); Hematocrit 48.5 % (40.0-54.0); Hemoglobin 16.4 g/dL (14.0-18.0); Immature Granulocyte Absolute 0.03 K/mm3 (0.00-0.00); Immature Granulocyte Percent A 0.3 % (0.0-0.0); Lymphocytes Absolute Auto 2.74 K/mm3 (1.10-4.50); Lymphocytes Percent Auto 27.6 % (18.0-42.0); Mean Corpuscular HGB Conc 33.8 g/dL (32.0-36.0); Mean Corpuscular Hemoglobin 32.3 pg (27.0-31.0); Mean Corpuscular Volume 95.7 fL (78.0-102.0); Mean Platelet Volume 8.7 fl (8.7-11.0); Monocytes Absolute Auto 0.82 K/mm3 (0.10-0.90); Monocytes Percent Auto 8.3 % (2.0-11.0); Neutrophils Absolute Auto 6.1 K/mm3 (1.7-7.2); Platelet Count Result 288 K/mm3 (150-420); Red Blood Count 5.07 M/mm3 (4.70-6.10); Red Cell Distribution Width 13.2 % (11.6-14.4); White Blood Count 9.9 K/mm3 (4.8-10.8)
[2022-08-21 17:53] LABS: Alanine Aminotransferase 17 U/L (16-63); Albumin Level 3.7 g/dL (3.4-5.0); Alkaline Phosphatase 118 U/L (46-116); Anion Gap 11 mmol/L (8-16); Aspartate Amino Transferase 23 U/L (15-37); Bilirubin,Total 0.4 mg/dL (0.00-1.00); Blood Urea Nitrogen 12 mg/dL (7-18); Calcium 9.2 mg/dL (8.5-10.1); Carbon Dioxide 30 mmol/L (21-32); Chloride 104 mmol/L (98-108); Cholesterol 178 mg/dL (0-200); Estimated Glomerular Filt Rate > 60; Glucose 111 mg/dL (70-99); HDL Direct 69 mg/dL (40-60); LDL Cholesterol Calculated 84 mg/dL (<130); Osmolality Calculated 300 mOsm/kg (285-295); Sodium 145 mmol/L (136-145); Thyroid Stimulating Hormone 1.07 uIU/mL (0.36-3.74); Total Protein 6.9 g/dL (6.4-8.2); Triglycerides 124 mg/dL (0-150)
== END 2022-08-21 16:48 | disposition home or self-care (01) ==
LOC: CHSLAB 16:48
PROVIDERS: PCP Nurse Practitioner Family; Visit Provider Nurse Practitioner Family
DX: Z76.89 Persons encountering health services in other specified circumstances (principal)
CPT/HCPCS: 36415; 80053; 80061; 84443; 85025

== ENCOUNTER 2022-12-22 00:31 | Emergency (ER) | payer BC, SELFPAY ==
[2022-12-22 00:40] VITALS: BP 146/99; PULSE 95; RESP 18; TEMP 36.6; O2SAT 96
[2022-12-22] MEDS: LIDOCAINE HCL 1% LOCAL INJ 10 ML VIAL INFILTRATE (00:58)
--- NOTE | 2022-12-22 01:12 | ED.WOUNDLAC ---
HPI - Wound/Laceration General Chief Complaint: Wound/Laceration Stated Complaint: Laceration to Left Wrist Time Seen by Provider: 12/22/22 00:43 Source: patient Mode of arrival: ambulatory Limitations: no limitations History of Present Illness Onset (ago): hour(s) Location: other ( left wrist) Extremity Location: Left: wrist ( 5cm mildly gaping laceration) Place: outdoors Context: accidental Related Data Home Medications Medication Instructions Recorded Confirmed No Home Medications 12/22/22 12/22/22 Allergies Allergy/AdvReac Type Severity Reaction Status Date / Time No Known Allergies Allergy Verified 12/22/22 00:39 Review of Systems Review of Systems: this is a 52-year-old male that presents after he was using a chain saw to trim grape mikie, cut his left wrist the radial surface with his chainsaw causing about a 5cm laceration mildly gaping to the left wrist this occurred around 5:00 p.m. this evening patient tried to stop the bleeding but it and continued to bleed, patient has good range of motion in his hand and fingers are some mild tingling secondary to inflammation otherwise has good range of motion. [facility] Past Medical History Medical History Abscess of scrotum Boil of scrotum Cellulitis of scrotum ETOH abuse Overweight (BMI 25.0-29.9) Tobacco dependence Surgical History Surgical History No history of previous surgery Family History Family History Father , from gangrene and sepsis from infected foot Diabetes mellitus DMII Hypertension Mother Alzheimer's dementia Heart disease Other Family history non-contributory Social History Social History Social History: Surrogate medical decision maker: Courtney Hughes, sister. Code status: Full code. Smoking packs per day: 1.5 Smoking cigarettes per day: 30.0 Years smoked: 34 Smoking pack-years: 51.00 Smoking status: Current every day smoker Tobacco type: cigarettes Second hand tobacco smoke exposure: No Alcohol intake: current Drinks per week: 12 Alcohol use details: Twelve pack of beer a week. Substance use: never Substance use type: does not use Additional living arrangements comments: The patient lives in his own home in [place]. 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 Spiritual care concerns: No Exam Const: General: healthy appearing Nutritional Appearance: well nourished Orientation/consciousness: patient oriented x3 Limitations: no limitations HENMT: Head: normal to inspection Eyes: Conjunctivae: conjunctivae normal Chest: Chest palpation & inspection: normal inspection of the chest Resp: Effort & Inspection: normal respiratory effort Cardio: Rate: regular rate Rhythm: regular rhythm Skin: General skin exam: normal color Wounds: wounds noted Neuro: General: patient oriented x3 Cranial nerves: Yes Nystagmus not present Speech: normal speech Gait exam (Neuro): Normal gait present Extrem: General: normal to inspection Psych: Mental Status: mental status grossly normal Affect: normal affect Course Course Emergency Course: Patient is up-to-date with his tetanus, Coban was used to control bleeding and sutures were placed, patient tolerated procedure well. Vital Signs Vital signs: Vital Signs Temperature 36.6 C 12/22/22 00:40 Pulse Rate 95 12/22/22 00:40 Respiratory Rate 18 12/22/22 00:40 Blood Pressure 146/99 H 12/22/22 00:40 Pulse Oximetry 96 12/22/22 00:40 Temperature 36.6 C 12/22/22 00:40 Pulse Rate 95 12/22/22 00:40 Respiratory Rate 18 12/22/22 00:40 Blood Pressure 146/99 H 12/22/22 00:40 Pulse Oximetry 96 12/22/22 00:40 Procedures Laceration Laceration 1: Kartik
[2022-12-22 01:22] VITALS: PULSE 90; RESP 18; O2SAT 96
== END 2022-12-22 01:27 | disposition home or self-care (01) ==
LOC: CHSED 01:21
PROVIDERS: Emergency Provider Emergency Medicine; PCP Nurse Practitioner Family
DX: S61.512A Laceration without foreign body of left wrist, initial encounter (principal); F17.210 Nicotine dependence, cigarettes, uncomplicated; W29.3XXA Contact with powered garden and outdoor hand tools and machinery, initial encounter
CPT/HCPCS: 12002; 99282

== ENCOUNTER 2022-12-26 11:10 | Outpatient (NON) | payer BC, SELFPAY | END 2022-12-26 11:11 | disposition home or self-care (01) | LOC: CHSLAB 11:13 | PROVIDERS: Visit Provider Nurse Practitioner Family | DX: S61.412A Laceration without foreign body of left hand, initial encounter (principal) | CPT/HCPCS: 87070; 87075; 87205 ==

== ENCOUNTER 2024-08-02 06:58 | Outpatient (CLI) | payer BC, SELFPAY ==
--- NOTE | 2024-08-02 07:06 | EST_ITS ---
Patient Info Name: Toby Chou Age: 54 years : 1970 Gender: Male Ht: 64 in Wt: 155 lbs BSA: 1.80 m2 Technical Quality: Good Exam Date: 08/02/2024 8:53 AM Exam Location: Echo Lab Patient Status: Outpatient Admit Date: 08/02/2024 Staff Ordering Physician: Esau Cornejo APRN Attending Provider: Debra Palacios NMAA Exam Type: CA stress test treadmill w NM Study Info A treadmill exercise stress test was performed. History/Risk Factors Tobacco Use: Current - Every Day If Any Current, Tobacco Type: Cigarettes If Current - Every Day \T\ Cigarettes, Amount: Heavy Tobacco Use (>=10/day) Family History: Coronary Artery Disease Summary 1. 1. Negative Brennan exercise stress test for ischemic ST changes by ECG criteria. 2. 2. Good functional capacity, achieving 12 METs of workload. 3. 3. Baseline hypertension. 4. 4. Appropriate HR response to exercise. 5. 5. Appropriate HR recovery at 1 minute post exercise. 6. 6. Nuclear scan to follow and will be reported separately. Please correlate with it. Protocol: Brennan Stress ECG Details Stage: REST Duration (min): 7 min : 57 sec Speed (mph): 0.0 Grade (%): 0 HR (bpm): 79 SBP (mmHg): 147 DBP (mmHg): 94 METS: --- Stage: REST Duration (min): 12 min : 14 sec Speed (mph): 0.0 Grade (%): 0 HR (bpm): 76 SBP (mmHg): 147 DBP (mmHg): 94 METS: --- Stage: STAGE 1 Duration (min): 1 min : 0 sec Speed (mph): 1.7 Grade (%): 10 HR (bpm): 93 SBP (mmHg): 147 DBP (mmHg): 94 METS: --- Stage: STAGE 1 Duration (min): 2 min : 0 sec Speed (mph): 1.7 Grade (%): 10 HR (bpm): 101 SBP (mmHg): 147 DBP (mmHg): 94 METS: --- Stage: STAGE 1 Duration (min): 3 min : 0 sec Speed (mph): 1.7 Grade (%): 10 HR (bpm): 104 SBP (mmHg): 177 DBP (mmHg): 105 METS: --- Stage: STAGE 2 Duration (min): 1 min : 0 sec Speed (mph): 2.5 Grade (%): 12 HR (bpm): 111 SBP (mmHg): 177 DBP (mmHg): 105 METS: --- Stage: STAGE 2 Duration (min): 2 min : 0 sec Speed (mph): 2.5 Grade (%): 12 HR (bpm): 115 SBP (mmHg): 177 DBP (mmHg): 105 METS: --- Stage: STAGE 2 Duration (min): 3 min : 0 sec Speed (mph): 2.5 Grade (%): 12 HR (bpm): 118 SBP (mmHg): 207 DBP (mmHg): 102 METS: --- Stage: STAGE 3 Duration (min): 1 min : 0 sec Speed (mph): 3.4 Grade (%): 14 HR (bpm): 129 SBP (mmHg): 207 DBP (mmHg): 102 METS: --- Stage: STAGE 3 Duration (min): 2 min : 0 sec Speed (mph): 3.4 Grade (%): 14 HR (bpm): 131 SBP (mmHg): 207 DBP (mmHg): 102 METS: --- Stage: STAGE 3 Duration (min): 3 min : 0 sec Speed (mph): 3.4 Grade (%): 14 HR (bpm): 136 SBP (mmHg): 203 DBP (mmHg): 101 METS: --- Stage: STAGE 4 Duration (min): 1 min : 0 sec Speed (mph): 4.2 Grade (%): 16 HR (bpm): 157 SBP (mmHg): 203 DBP (mmHg): 101 METS: --- Stage: STAGE 4 Duration (min): 1 min : 20 sec Speed (mph): 4.2 Grade (%): 16 HR (bpm): 159 SBP (mmHg): 203 DBP (mmHg): 101 METS: --- Stage: RECOVERY Duration (min): 0 min : 39 sec Speed (mph): 0.0 Grade (%): 0 HR (bpm): 141 SBP (mmHg): 203 DBP (mmHg): 101 METS: --- Stage: RECOVERY Duration (min): 1 min : 39 sec Speed (mph): 0.0 Grade (%): 0 HR (bpm): 132 SBP (mmHg): 203 DBP (mmHg): 101 METS: --- Stage: RECOVERY Duration (min): 2 min : 39 sec Speed (mph): 0.0 Grade (%): 0 HR (bpm): 164 SBP (mmHg): 189 DBP (mmHg): 85 METS: --- Stage: RECOVERY Duration (min): 3 min : 39 sec Speed (mph): 0.0 Grade (%): 0 HR (bpm): 104 SBP (mmHg): 189 DBP (mmHg): 85 METS: --- Stage: RECOVERY Duration (min): 4 min : 39 sec Speed (mph): 0.0 Grade (%): 0 HR (bpm): 107 SBP (mmHg): 162 DBP (mmHg): 77 METS: --- Stage: RECOVERY Duration (min): 5 min : 39 sec Speed (mph): 0.0 Grade (%): 0 HR (bpm): 102 SBP (mmHg): 159 DBP (mmHg): 80 METS: --- Stage: RECOVERY Duration (min): 6 min : 39 sec Speed (mph): 0.0 Grade (%): 0 HR (bpm): 98 SBP (mmHg): 159 DBP (mmHg): 80 METS: --- Stage: RECOVERY Duration (min): 7 min : 24 sec Speed (mph): 0.0 Grade (%): 0 HR (bpm): 105 SBP (mmHg): 159 DBP (mmHg): 80 METS: --- Rest HR: 76 bpm Peak HR: 170 bpm Rest Sys BP: 147 mmHg Peak Sys BP: 207 mmHg Max Pred HR: 166 bpm % Max Pred HR: 102 % Target HR: 141 bpm Max RPP: 35,190 bpm*mmHg Amaya Score: -4 Target HR Summary: Patient's target heart rate was achieved BP Response: Normal blood pressure response Termination Reason: Fatigue Cardiac Symptoms: None Max ST Seg Deviation: 3 mm Total Time: 10 min : 20 sec Rest Goins BP: 94 mmHg Peak Goins BP: 102 mmHg Angina Score: None Total METS: 12.1 Resting ECG Sinus rhythm, BRWP. Stress ECG No abnormal ST/T wave changes with exercise. Arrhythmias No arrhythmias were observed during the examination. Report Signatures
--- NOTE | 2024-08-02 12:58 | WPDCARIOSTRE ---
Nuclear Stress Test INDICATIONS Indications: Chest pain PROCEDURE Procedure Performed: Myocardial Perf Spect-Multi Procedure: Patient exercised on a standard Brennan protocol and at peak HR was injected with 33.5 mCi of cardiolyte. Multiple tomographic images were obtained. These are of good quality. There is evidence of a small size, mild intensity anterior perfusion defect with stress imaging. A separate resting images were obtained after patient was injected with 10.7 mCi of cardiolyte. Multiple tomographic images were obtained. These are of good quality. There is evidence of a small size, mild intensity anterior perfusion defect with rest imaging. CONCLUSION Conclusion: 1. Myocardial perfusion imaging demonstrating a fixed small size anterior perfusion defect suggestive of attenuation artifact. 2. No evidence of reversible ischemia. 3. Left ventriculogram demonstrates normal measured ejection fraction of 66% with no wall motion abnormality. 4. TID score 1.18 is not elevated.
== END 2024-08-02 06:59 | disposition home or self-care (01) ==
LOC: CHSIMG 06:59
PROVIDERS: PCP Nurse Practitioner Family; Visit Provider Nurse Practitioner Family
DX: R07.89 Other chest pain (principal)
CPT/HCPCS: 78452; 93017; A9502

== ENCOUNTER 2024-08-13 10:25 | Outpatient (CLI) | payer BC, SELFPAY ==
--- NOTE | ~2024-08-13 | CT_ITS ---
EXAMINATION: CT soft tissue neck w con DATE: 08/13/2024 11:47 INDICATION: Cough, lymphadenopathy and black spots on the back of the tongue TECHNIQUE: Computed tomography (CT) of the neck was performed with 75 mL Omnipaque-350 intravenous co ntrast. Automated exposure control and iterative reconstruction technique were employed. The dose-cristhian gth product was 531.50 mGy-cm. COMPARISON: None FINDINGS: Calcified left apical pulmonary nodule consistent with old granulomatous disease. Changes of bilatera l intraocular lens replacement. Orbits are otherwise normal. The paranasal sinuses are clear. Visual ized portions of the mastoid air cells and middle ear cavities are clear. There is mucosal thickening the bilateral maxillary sinuses. Submandibular and parotid glands are symmetric. Thyroid gland is no rmal. There are scattered normal-sized lymph nodes in the neck, no lymphadenopathy. Atherosclerotic calcification with 0% stenosis by NASCET criteria at the bilateral carotid bulbs. Parapharyngeal soft tissues are unremarkable. No masses identified. Airway is widely patent throughout. Normal epiglotti s and aryepiglottic folds. Mild cervical spondylosis. IMPRESSION: 1. Cervical soft tissues and particularly paravertebral soft tissues are unremarkable with no abnorma l masses or fluid collections or pathologically enlarged cervical lymphadenopathy. 2. Atherosclerotic calcifications with 0% stenosis by NASCET criteria at the bilateral carotid bulbs. Reviewed, dictated and finalized at location B. EPOINT CONSULTANT IMPRESSION: 1. Cervical soft tissues and particularly paravertebral soft tissues are unrema rkable with no abnormal masses or fluid collections or pathologically enlarged cervical lymphadenopathy. 2. Atherosclerotic calcifications with 0% stenosis by NASCET criteria at the bi lateral carotid bulbs.
[2024-08-13 11:06] LABS: Hemoglobin A1C 5.5 % (<5.7)
[2024-08-13 11:15] LABS: Alanine Aminotransferase 41 U/L (16-63); Albumin Level 3.9 g/dL (3.4-5.0); Alkaline Phosphatase 114 U/L (46-116); Anion Gap 9 mmol/L (4-12); Aspartate Amino Transferase 33 U/L (15-37); Bilirubin,Total 0.6 mg/dL (0.00-1.00); Blood Urea Nitrogen 14 mg/dL (7-18); Calcium 9.4 mg/dL (8.5-10.1); Carbon Dioxide 30 mmol/L (21-32); Chloride 99 mmol/L (98-108); Cholesterol 230 mg/dL (0-200); Estimated Glomerular Filt Rate > 60; Glucose 95 mg/dL (70-99); HDL Direct 101 mg/dL (40-60); LDL Cholesterol Calculated 109 mg/dL (<130); NT Pro B Type Natriuretic Pept 24 pg/mL (0-125); Osmolality Calculated 286 mOsm/kg (285-295); Potassium 4.8 mmol/L (3.5-5.1); Sodium 138 mmol/L (136-145); Total Protein 7.1 g/dL (6.4-8.2); Triglycerides 101 mg/dL (0-150)
[2024-08-13 11:21] LABS: Troponin I < 4.0 ng/L (0.00-60.4)
[2024-08-13 11:42] LABS: Thyroid Stimulating Hormone Reflex 0.53 u/IU/mL (0.36-3.74)
== END 2024-08-13 10:26 | disposition home or self-care (01) ==
PROVIDERS: PCP Nurse Practitioner Family; Visit Provider Nurse Practitioner Family
DX: Z00.00 Encounter for general adult medical examination without abnormal findings (principal); R07.89 Other chest pain; E87.8 Other disorders of electrolyte and fluid balance, not elsewhere classified; K14.8 Other diseases of tongue; R05.3 Chronic cough
CPT/HCPCS: 36415; 70491; 80053; 80061; 83036; 83880; 84443; 84484; Q9967

== ENCOUNTER 2024-08-17 16:52 | Outpatient (CLI) | payer BC, SELFPAY ==
[2024-08-17 17:34] LABS: Occult Blood Negative (Negative)
== END 2024-08-17 16:53 | disposition home or self-care (01) ==
PROVIDERS: PCP Family Medicine; Visit Provider Nurse Practitioner Family
DX: K92.1 Melena (principal)
CPT/HCPCS: 82272; 87045; 87427; 87449

== ENCOUNTER 2024-09-01 11:30 | Outpatient (CLI) | payer BC, SELFPAY ==
--- NOTE | ~2024-09-01 | XR_ITS ---
EXAMINATION: XR chest 2V 09/01/2024 11:51 INDICATION: Chronic cough PROCEDURE: 2 view chest COMPARISON: No prior studies for comparison. FINDINGS: The lungs are clear. The cardiomediastinal silhouette is within normal limits. There are no pleural effusions. There is no pneumothorax suspected. IMPRESSION: 1: NO ACUTE CARDIOPULMONARY DISEASE. Reviewed, dictated and finalized at location B. [employer] P[employer]HIC[employer] CONTRO[employer]ER
[2024-09-01 11:49] LABS: Basophils Absolute Auto 0.03 K/mm3 (0.00-0.10); Basophils Percent Auto 0.4 % (0.0-1.0); Eosinophils Absolute Auto 0.11 K/mm3 (0.02-0.50); Eosinophils Percent Auto 1.5 % (1.0-6.0); Hematocrit 50.8 % (40.0-54.0); Hemoglobin 18.1 g/dL (14.0-18.0); Immature Granulocyte Absolute 0.02 K/mm3 (0.00-0.00); Immature Granulocyte Percent A 0.3 % (0.0-0.0); Lymphocytes Absolute Auto 2.55 K/mm3 (1.10-4.50); Lymphocytes Percent Auto 35.6 % (18.0-42.0); Mean Corpuscular HGB Conc 35.6 g/dL (32-36); Mean Corpuscular Hemoglobin 32.3 pg (27.0-31.0); Mean Corpuscular Volume 90.6 fL (78.0-102.0); Monocytes Absolute Auto 0.67 K/mm3 (0.10-0.90); Monocytes Percent Auto 9.4 % (2.0-11.0); Neutrophils Absolute Auto 3.78 K/mm3 (1.70-7.20); Neutrophils Percent Auto 52.8 % (50.0-70.0); Platelet Count Result 222 K/mm3 (150-420); Red Blood Count 5.61 M/mm3 (4.70-6.10); Red Cell Distribution Width 13.3 % (11.6-14.4); White Blood Count 7.2 K/mm3 (4.8-10.8)
[2024-09-01 12:09] LABS: D Dimer 0.22 mg/L (0.19-0.50)
[2024-09-01 12:58] LABS: Alanine Aminotransferase 34 U/L (16-63); Albumin Level 3.6 g/dL (3.4-5.0); Alkaline Phosphatase 123 U/L (46-116); Anion Gap 15 mmol/L (4-12); Aspartate Amino Transferase 28 U/L (15-37); Bilirubin,Total 0.5 mg/dL (0.00-1.00); Blood Urea Nitrogen 10 mg/dL (7-18); Calcium 9.1 mg/dL (8.5-10.1); Carbon Dioxide 26 mmol/L (21-32); Chloride 100 mmol/L (98-108); Estimated Glomerular Filt Rate > 60; Glucose 105 mg/dL (70-99); Iron 58 ug/dL (65-175); Osmolality Calculated 291 mOsm/kg (285-295); Percent Iron Saturation 18 % (12-57); Potassium 4.6 mmol/L (3.5-5.1); Sodium 141 mmol/L (136-145); Total Protein 6.8 g/dL (6.4-8.2)
[2024-09-01 13:23] LABS: Thyroid Stimulating Hormone Reflex 0.46 u/IU/mL (0.36-3.74)
== END 2024-09-01 11:31 | disposition home or self-care (01) ==
PROVIDERS: PCP Nurse Practitioner Family; Visit Provider Nurse Practitioner Family
DX: R06.02 Shortness of breath (principal); I10 Essential (primary) hypertension; R09.89 Other specified symptoms and signs involving the circulatory and respiratory systems; R61 Generalized hyperhidrosis; R05.3 Chronic cough
CPT/HCPCS: 36415; 71046; 80053; 83540; 83550; 84443; 85025; 85380